=== PATIENT | female | born 1940 | race Caucasian/White ===

== ENCOUNTER → 2016-12-11 | Outpatient (CLI) | payer MEDICARE ==
--- NOTE | 2016-12-11 12:48 | EST ---
DATE OF SERVICE: 12/11/2016 AGE: 75Y SEX: F HT: 60 WT: 110 lbs. Protocol Teofilo: X Other: Stage: I Dur. of Exercise: 6 minutes *Heart Rate Blood Pressure *Rest: 78 Rest: 169/105 * *Max. Achieved: 143 Maximum BP: 201/87 85% PMHR: 124 100% PMHR: 146 *METS: 6.9 INDICATIONS: Chest pain, abnormal EKG. MEDICATIONS: Lisinopril, atenolol, aspirin. She was exercised for a total period of 6 minutes. A peak heart rate of 143 was achieved. Maximum blood pressure of 201-87 mmHg was noted. ( ) EKG shows normal sinus rhythm with normal FL interval and QRS duration and normal ST-T waves. No ST segment depression suggestive of ischemia is noted. The patient did not complain of any chest pain during the test. FINAL IMPRESSION: 1. This stress test is not suggestive of ischemia. 2. Patient's exercise tolerance is normal. 3. Patient did not complain of any anginal pain during the test.
== END | disposition home or self-care (01) ==
LOC: RADNMMAIN 10:27
PROVIDERS: ATTEND Family Medicine
DX: R07.9 Chest pain, unspecified (principal); I10 Essential (primary) hypertension
CPT/HCPCS: 93017

== ENCOUNTER → 2019-09-07 | Outpatient (CLI) | payer MEDICARE ==
--- NOTE | 2019-09-07 15:42 | BD ---
EXAMINATION TYPE: Axial Bone Density DATE OF EXAM: 09/07/2019 COMPARISON: NONE CLINICAL HISTORY: Height: 59 IN Weight: 113 LBD RISK FACTORS HISTORY OF: Active: YES Postmenopausal woman: TOTAL HYST AGE 48 Take estrogen and/or progesterone medications: NOT NOW How long: TOOK FROM AGE [age] MEDICATIONS: Additional Medications: VIT D, BLOOD PRESSURE,LISINOPRIL, METOPROLOL, EXAM MEASUREMENTS: Bone mineral densitometry was performed using the [employer] System. Bone mineral density as measured about the Lumbar spine is: ----- L1-L4(G/cm2): 0.810 T Score Values are as follows: ----- L2: -3.7 ----- L3: -2.8 ----- L4: -2.8 ----- L1-L4: -3.1 Bone mineral density BASELINE Bone mineral density about the R hip (g/cm2): 0.645 Bone mineral density about the L hip (g/cm2): 0.673 T Score values are as follows: -----R Neck: -2.8 -----L Neck: -2.6 -----R Total: -2.9 -----L Total: -2.8 Bone mineral density BASELINE IMPRESSION: Osteoporosis (T Score less than -2.5). There is increased fracture risk and therapy is usually indicated based on age. Re-Screen 1-2 years. NOTE: T-SCORE=SD OF THE YOUNG ADULT MEAN.
== END | disposition home or self-care (01) ==
LOC: RADBDWWP 09:18
PROVIDERS: ATTEND Family Medicine
DX: M81.0 Age-related osteoporosis without current pathological fracture (principal)
CPT/HCPCS: 77080

== ENCOUNTER → 2020-03-02 | Outpatient (CLI) | payer MEDICARE ==
--- NOTE | 2020-03-05 14:50 | NM ---
EXAMINATION TYPE: NM stress lexiscan cardiolite DATE OF EXAM: 03/05/2020 COMPARISON: NONE HISTORY: Chest pain. Hypertension. TECHNIQUE: After the intravenous administration of 10.29 mCi Tc 99m Sestamibi - Cardiolite resting S PECT images acquired 45 minutes post injection. The patient received 0.4mg Lexiscan, 26.4 mCi Tc 99m Sestamibi - Stress images obtained [address] injection FINDINGS: Review of stress and rest SPECT images demonstrates no distinct perfusion abnormality. Gated analysi s shows normal wall motion with an estimated left ventricular ejection fraction of 92 %. IMPRESSION: No scintigraphic evidence for reversible ischemia.
--- NOTE | 2020-03-07 10:42 | EST ---
EXERCISE STRESS AGE: 79 SEX: F HT: 59" WT: 112 lbs. PROTOCOL: Cardiolite Teofilo STAGE: 2 DURATION OF EXERCISE: 6:00 HEART RATE REST: 94 BLOOD PRESSURE REST: 165/79 MAXIMUM HEART RATE ACHIEVED: 127 MAXIMUM BLOOD PRESSURE: 197/94 85% MPHR: 121 100% MPHR: 142 METS: 7.1 DATE OF SERVICE: 03/05/2020 PROCEDURE PERFORMED: Exercise Cardiolite. INDICATION: Chest pain. STRESS DATA: Heart rate is 73, pressure is 165/79 mmHg. Baseline EKG showed sinus mechanism. The patient exercised on the treadmill according to Teofilo protocol for a total of 6 minutes and achieved 7.1 METS. Max heart rate was 127, which is about 89% of maximum predicted heart rate. Maximum blood pressure was 197/94 mmHg. Clinically, the patient did not have any chest pain or chest discomfort during the testing or on recovery and the EKG showed about [address]-segment changes on recovery. CONCLUSION: 1. Good exercise tolerance. 2. Mild EKG changes in response to exercise. 3. Please follow up on the Cardiolite portion on separate report from the Radiology Department. MMODL / IJN: [id number] /
== END | disposition home or self-care (01) ==
LOC: RADNMMAIN 08:09
PROVIDERS: ATTEND Family Medicine
DX: I10 Essential (primary) hypertension (principal); R07.9 Chest pain, unspecified
CPT/HCPCS: 78452; A9500

== ENCOUNTER → 2020-07-25 | Outpatient (CLI) | payer MEDICARE ==
--- NOTE | 2020-07-27 12:10 | MM ---
Reason for exam: screening (asymptomatic). Last mammogram was performed 5 years and 9 months ago. History: Patient is postmenopausal. Took hormonal contraceptives for 10 years. Took progesterone for 15 years. Physical Findings: A clinical breast exam by your physician is recommended on an annual basis and results should be correlated with mammographic findings. MG 3D Screening Mammo W/Cad Bilateral CC and MLO view(s) were taken. Prior study comparison: October 31, 2014, bilateral MG screening mammo w CAD. August 16, 2013, mammogram, performed at [facility]. The breast tissue is extremely dense which could obscure a lesion on mammography. There is chronic nodularity in the right breast. No significant changes when compared with prior studies. ASSESSMENT: Benign, BI-RAD 2 RECOMMENDATION: Routine screening mammogram of both breasts in 1 year.
== END | disposition home or self-care (01) ==
LOC: RADMAMWWP 15:35
PROVIDERS: ATTEND Family Medicine
DX: Z12.31 Encounter for screening mammogram for malignant neoplasm of breast (principal)
CPT/HCPCS: 77063; 77067

== ENCOUNTER → 2020-08-31 | Outpatient (CLI) | payer MEDICARE ==
--- NOTE | 2020-08-31 12:55 | BD ---
EXAMINATION TYPE: Axial Bone Density DATE OF EXAM: 08/31/2020 COMPARISON: 09/07/2019 CLINICAL HISTORY: Height: 59.2 IN Weight: 114 LBS RISK FACTORS HISTORY OF: Active: YES Postmenopausal woman: TOTAL HYST AGE 50 Take estrogen and/or progesterone medications: NOT NOW How long: TOOK FOR APPROX 20 YEARS MEDICATIONS: Osteoporosis Medications: YES Which medication: Actonel How Lon YEAR Additional Medications: ACTONEL, CALCIUM,BLOOD PRESSURE MEDS, EXAM MEASUREMENTS: Bone mineral densitometry was performed using the [employer]. Bone mineral density as measured about the Lumbar spine is: ----- L1-L4(G/cm2): 0.869 T Score Values are as follows: ----- L2: -3.2 ----- L3: -2.5 ----- L4: -1.6 ----- L1-L4: -2.6 Bone mineral density has: Increased 8.4% since study of: 09/07/2019 Bone mineral density about the R hip (g/cm2): 0.653 Bone mineral density about the L hip (g/cm2): 0.699 T Score values are as follows: -----R Neck: -2.8 -----L Neck: -2.4 -----R Total: -2.9 -----L Total: -2.7 Bone mineral density has: Increased 1.9% since study of: 09/07/2019 IMPRESSION: Osteoporosis NOTE: T-SCORE=SD OF THE YOUNG ADULT MEAN.
== END | disposition home or self-care (01) ==
LOC: RADBDWWP 08:34
PROVIDERS: ATTEND Family Medicine
DX: M81.0 Age-related osteoporosis without current pathological fracture (principal)
CPT/HCPCS: 77080